=== PATIENT | male | born 1975 | race Caucasian/White ===

== ENCOUNTER → 2021-02-05 | Outpatient (CLI) | payer OTHER ==
--- NOTE | 2021-02-05 13:44 | KCIC ---
Study: MRI left ankle without contrast INDICATION: History of Achilles repair in 2017. Pain reportedly at the Achilles insertion since November 2020. COMPARISON: None available. TECHNIQUE: Multiplanar MR imaging of the left ankle performed without the use of intravenous or intra -articular contrast. FINDINGS: Bones/cartilage: Four calcaneal suture anchors in the setting of previous Achilles repair. No finding s to suggest loosening or anchor retraction. Marrow signal is within normal limits. No focal chondral defect seen at the ankle. Ligaments: Unremarkable distal syndesmosis. Intact ATFL, CFL and PTFL. Intact deltoid ligament comple x. Unremarkable spring and Lisfranc ligaments. Musculotendinous: Thickened and heterogeneous Achilles most notably over a length of approximately 5 cm upwards from the insertional fibers. Somewhat linear areas of T2 signal elevation within the tendo n substance at the insertion, such as on image 13 series 4 and image 22 series 5) but without a high- grade or full-thickness recurrent tear. Mild T2 signal elevation surrounding the tendon at and approa richie the insertion over a length of around 2 to 3 cm, image 20 series 5. Intact and normally located peroneal and flexor tendons. Unremarkable extensors. Normal bulk of the v isualized intrinsic foot musculature. Sinus Tarsi: Unremarkable. Tarsal tunnel: Unremarkable. Plantar fascia: Unremarkable. Miscellaneous: None significant. IMPRESSION: Thickened and heterogeneous Achilles from its insertion upwards over a length of around 5 cm. Sequela of Achilles repair with four normally configured suture anchors. No recurrent high-grade or full-thi ckness tear. No overt calcaneal marrow edema to suggest active insertional tendinitis. There may be m ild paratenonitis at the distal 2 to 3 cm of the Achilles however the signal in this region is nonspe cific for active inflammation versus a manifestation of previous repair. If there are worsening sympt oms eventual repeat MRI could be performed to help differentiate chronic findings from recurrent path ology. Electronically signed by: DHRUV LAZO MD (02/05/2021 1:42 PM) [id number]
== END ==
LOC: KCIC MRI 10:44
PROVIDERS: ATTEND Physician Assistant
DX: S86.012A Strain of left Achilles tendon, initial encounter (principal); X58.XXXA Exposure to other specified factors, initial encounter; Y93.89 Activity, other specified; Y92.89 Other specified places as the place of occurrence of the external cause; Y99.8 Other external cause status
CPT/HCPCS: 73721